=== PATIENT | male | born 1930 | race Caucasian/White ===

== ENCOUNTER 2018-09-10 14:21 | Emergency (ER) | payer MEDICARE ==
[~2018-09-10] VITALS: Ht 167.6 cm; Wt 79.9 kg
--- NOTE | 2018-09-10 15:34 | RAD ---
CT head without contrast 09/10/2018 CLINICAL INDICATION: Fall with trauma to the back of head. COMPARISON: None. TECHNIQUE: Multiple CT images of the head were obtained without contrast. *One or more of the following individualized dose reduction techniques were utilized for this examination: 1. Automated exposure control. 2. Adjustment of the mA and/or kV according to patient size. 3. Use of iterative reconstruction technique. FINDINGS: No acute intracranial hemorrhage or extra-axial fluid collection. No midline shift. Mild prominence of the ventricles and subarachnoid spaces. Mild periventricular white matter low-attenuation. The visualized mastoid air cells and paranasal sinuses are well aerated. Small right posterior scalp contusion. IMPRESSION: 1. No acute intracranial hemorrhage. 2. Small posterior right scalp contusion. 3. Mild nonspecific white matter disease, likely related to chronic small vessel ischemic disease. Electronically signed by: Shravan Mercedes MD (09/10/2018 3:30 PM) [facility] [place]
--- NOTE | 2018-09-10 15:59 | PHYS DOC ---
Past History Past Medical History: Hypertension Past Surgical History: No Surgical History Alcohol Use: None Drug Use: None Adult General Chief Complaint Chief Complaint: MECHANICAL FALL HPI HPI 80-year-old male presents with fall. The patient was walking outside his house when he went to step up a small step. He changed his mind and started to back down. As he was stepping back, he lost his balance and was unable to catch himself. He fell onto asphalt and hit the back of his head. He was not knocked unconscious. He was able to get up. He has had no difficulty with coordination. He denies change in vision. He denies any other injuries. Review of Systems Review of Systems Constitutional: Denies fever or chills [] Eyes: Denies change in visual acuity, redness, or eye pain [] HENT: Denies nasal congestion or sore throat [] Respiratory: Denies cough or shortness of breath [] Cardiovascular: No additional information not addressed in HPI [] GI: Denies abdominal pain, nausea, vomiting, bloody stools or diarrhea [] : Denies dysuria or hematuria [] Musculoskeletal: Denies back pain or joint pain [] Integument: Abrasion of the posterior scalp[] Neurologic: Denies headache, focal weakness or sensory changes [] Endocrine: Denies polyuria or polydipsia [] All other systems were reviewed and found to be within normal limits, except as documented in this note. Current Medications Current Medications Current Medications Medications (Trade) Dose Ordered Sig/Santiago Start Time Stop Time Status Last Admin Dose Admin Diphtheria/ Tetanus/Acell Pertussis (Boostrix) 0.5 ml ONCE ONCE 09/10/18 15:45 09/10/18 15:46 DC Allergies Allergies Allergies Coded Allergies Type Severity Reaction Last Updated Verified Penicillins Allergy Unknown 09/10/18 Yes Physical Exam Physical Exam Constitutional: Well developed, well nourished, no acute distress, non-toxic appearance. [] HENT: Normocephalic, atraumatic, bilateral external ears normal, oropharynx moist, no oral exudates, nose normal. [] Eyes: PERRLA, EOMI, conjunctiva normal, no discharge. [] Neck: Normal range of motion, no tenderness, supple, no stridor. [] Cardiovascular:Heart rate regular rhythm, no murmur [] Lungs & Thorax: Bilateral breath sounds clear to auscultation [] Abdomen: Bowel sounds normal, soft, no tenderness, no masses, no pulsatile masses. [] Skin: 2 cm abrasion with underlying hematoma of the posterior scalp. [] Back: No tenderness, no CVA tenderness. [] Extremities: No tenderness, no cyanosis, no clubbing, ROM intact, no edema. [] Neurologic: Alert and oriented X 3, normal motor function, normal sensory function, no focal deficits noted. [] Psychologic: Affect normal, judgement normal, mood normal. [] Current Patient Data Vital Signs Vital Signs Date Time Temp Pulse Resp B/P (MAP) Pulse Ox O2 Delivery O2 Flow Rate FiO2 09/10/18 14:25 97.9 76 16 97 Room Air EKG EKG [] Radiology/Procedures Radiology/Procedures [] Course & Med Decision Making Course & Med Decision Making Pertinent Labs and Imaging studies reviewed. (See chart for details) Patient's tetanus is not up-to-date. We will give him a tetanus shot. His head CT is unremarkable. The patient has been lucid the entire time in the ED. He is not on any blood thinners except for baby aspirin. The patient lives at home alone, but his family has offered to take them to his house for the night so that they can check on him. He would prefer to do this versus an observation in the hospital. I believe this is reasonable given the patient is exhibiting no difficulties at this time.[] Dragon Disclaimer Dragon Disclaimer This electronic medical record was generated, in whole or in part, using a voice recognition dictation system. Departure Departure: Referrals: NON,STAFF (PCP) DIANDRA LE DO Sep 10, 2018 15:59
[2018-09-10 16:00] VITALS: BP 155/81
[2018-09-10] MEDS: DIPHTH,PERTUSS(ACELL),TET TOX 0.5 ML DISP.SYRIN. VAX IM ONE (16:50)
== END 2018-09-10 16:54 | disposition home or self-care (01) ==
LOC: ER 14:21
DX: S00.03XA Contusion of scalp, initial encounter (principal); I10 Essential (primary) hypertension; Z88.0 Allergy status to penicillin; W18.09XA Striking against other object with subsequent fall, initial encounter; Y93.01 Activity, walking, marching and hiking; Y92.89 Other specified places as the place of occurrence of the external cause; Y99.8 Other external cause status
CPT/HCPCS: 70450; 90471; 90715; 99284-25